=== PATIENT | female | born 1960 | race Caucasian/White ===

== ENCOUNTER 2019-08-31 12:15 | Observation (INO) | payer OTHER, SELFPAY ==
[2019-08-31] VITALS (7 sets, daily range): BP systolic 131–163; BP diastolic 67–105; PULSE 62–90; RESP 16–18; TEMP 36.1–36.8; O2SAT 93–98; BMI 37.7
--- NOTE | 2019-08-31 12:28 | NURSING ---
NO OLD EKGS
--- NOTE | 2019-08-31 12:34 | EKG12_ITS ---
Test Reason : CP Blood Pressure : / mmHG Vent. Rate : 079 BPM Atrial Rate : 079 BPM P-R Int : 144 ms QRS Dur : 080 ms QT Int : 378 ms P-R-T Axes : 014 025 007 degrees QTc Int : 433 ms Normal sinus rhythm Normal ECG Confirmed by DAYAN SHARMA, MILY ([id number]), city editor MARTHA JENNINGS ([id number]) on 09/02/2019 11:03:11 AM Referred By: MARSHA Confirmed By:MILY HANLEY MD
--- NOTE | 2019-08-31 12:43 | RAD_ITS ---
STUDY: X-RAY CHEST REASON FOR EXAM: Female, 59 years old. Chest pain. TECHNIQUE: Single AP portable view of the chest. COMPARISON: None. FINDINGS: EKG electrodes are seen. The lungs are clear and expanded. There is no demonstrated pleural abnormality. There is mild cardiac enlargement. Normal mediastinum and dharmesh. Normal visualized pulmonary arteries. Normal visualized aortic arch and descending thoracic aorta. There are degenerative changes of the visualized thoracic spine. Normal visualized ribs, clavicles, and shoulders. There is no demonstrated abnormality of the visualized soft tissue structures of the upper abdomen. RAD/Chest 1 View (Portable) IMPRESSION: Mild cardiomegaly. The lungs are clear. Electronically Signed: Boo Treadwell, at 12:56 EST , Service support ,
[2019-08-31 12:50] LABS: Absolute Neutrophil Count 4.7 X10^3/uL (2.0-7.7); Basophil# 0.06 X10^3/uL; Basophil% 0.7 % (0-1); Eosinophil# 0.13 X10^3/uL; Eosinophils% 1.6 % (0-5); Hematocrit 41.5 % (37-47); Lymphocyte % 33.8 % (19-41); Mean Corp Hgb Conc 33.7 g/dL (32-36); Mean Corpuscular Hgb 31.3 pg (27.0-32.0); Mean Corpuscular Volume 92.8 fL (81-99); Mean Platelet Vol. 9.4 fl (6.2-12.0); Monocyte# 0.58 X10^3/uL; NRBC Flagged by Analyzer 0 % (0-5); Neutrophil # 4.69 X10^3/uL (2.7-7.7); Neutrophil % 56.5 % (47-70); Platelet Count 446 K/mm3 (150-450); RBC Distribution Width CV 11.9 % (11.6-14.6); RBC Distribution Width SD 41.1 fl (35.1-43.9); Red Blood Count 4.47 M/mm3 (4.2-5.4); White Blood Count 8.3 K/mm3 (4.4-11.0)
--- NOTE | 2019-08-31 12:57 | ED.DCSUM_ITS ---
History of Present Illness Chief Complaint: Chest Pain Informant: Patient Onset: Today Context: Sudden Onset Timing: Continuous Current Severity: Moderate Maximum Severity: Moderate Narrative: The patient is a 59-year-old female with history of hypertension who presents to the emergency department with sudden onset chest pain. Patient was in her normal state of health. States she was at work. She states she suddenly had a substernal chest heaviness and felt short of breath. It was nonradiating. She did have mild nausea. She states the dyspnea has improved, but she still has the tightness in her chest. She states she is never had pain like this before. She exercises and has not had any exertional chest pain. She denies any fevers or chills. She does have a strong family history of heart disease. Prior similar symptoms: No Recent Illness/Hospitalization: No Past Medical History - Allergies and Home Meds Allergies/Adverse Reactions: Allergies bee venom protein (honey bee) Allergy (Verified 08/31/19 14:43) Anaphylaxis lisinopril Allergy (Verified 08/31/19 14:43) cough aspirin Adverse Reaction (Verified 08/31/19 12:16) Upset Stomach capsaicin [From Zostrix] Adverse Reaction (Verified 08/31/19 15:03) fever, joint pain Prior records reviewed: Yes Past Medical History: - - Hypertension Smoking Status: Current every day smoker - Family History Sibling Family History: Reports: Heart Disease - Sister who had Takatsubo cardiomyopathy Review of Systems General: Denies: Chills, Fever, Sweats Eyes: Denies: Visual changes - bilaterally, Diplopia ENT: Denies: Rhinorrhea, Sore throat Cardiovascular: Reports: Chest pain. Denies: Palpitations Respiratory: Reports: Dyspnea. Denies: Cough, Dyspnea on exertion Gastrointestinal: Denies: Abdominal pain, Nausea, Vomiting, Diarrhea, Melena, Hematochezia Genitourinary: Denies: Dysuria, Hematuria, Frequency Musculoskeletal: Denies: Back pain, Extremity Pain Skin: Denies: Rash, Wounds Neurological: Denies: Headache, Weakness, Numbness Physical Exam Vital Signs/Narrative: Vital Signs Temp Pulse Resp BP Pulse Ox 08/31/19 12:16 96.9 F L 90 17 163/105 H 95 Inital Vital Signs reviewed: Yes General: Well nourished, Well developed, No Acute Distress Head: Normocephalic, Atraumatic Eyes: Perrl, EOMI ENT: Moist mucous membranes, No rhinorrhea Neck: Supple, Nontender Cardiovascular: Regular rate, Regular rhythm, No murmurs Respiratory: No distress, CTA bilaterally, Chest nontender Abdomen: Soft, Nontender, Nondistended, Normal bowel sounds Back: Nontender, Normal Inspection Extremities: Nontender, No edema Skin: Normal color, No rash Neurological: Alert, Oriented x3, Cranial nerves II-XII grossly intact, Normal Strength, Normal Sensation Psychological: Normal affect, Normal Mood Diagnostic/Tx/Re-eval Clinical Impression(s) from Imaging Studies Chest X-Ray 08/31/19 12:43 IMPRESSION: Mild cardiomegaly. The lungs are clear. Electronically Signed: Boo Eben, at 12:56 EST , Service support , Abnormal Lab Results 08/31/19 08/31/19 12:24 12:24 WBC 8.3 RBC 4.47 Hgb 14.0 Hct 41.5 MCV 92.8 MCH 31.3 MCHC 33.7 RDW Std Deviation 41.1 RDW Coeff of Vannesa 11.9 Plt Count 446 MPV 9.4 Immature Gran % (Auto) 0.400 Neut % (Auto) 56.5 Lymph % (Auto) 33.8 Mccormick % (Auto) 7.0 Eos % (Auto) 1.6 Baso % (Auto) 0.7 Absolute Neuts (auto) 4.7 Absolute Lymphs (auto) 2.80 Nucleated RBC % 0 Sodium 139 Potassium 3.6 Chloride 103 Carbon Dioxide 30.0 Anion Gap 6 BUN 9 Creatinine 0.73 Estim Creat Clear Calc 10.83 Est GFR (MDRD) Af Amer 106 Est GFR (MDRD) Non-Af 88 BUN/Creatinine Ratio 12.4 Glucose 94 Calcium 9.6 Troponin I < 0.015 - Rhythm Strip Rhythm Strip: Sinus Rhythm Rate: 80 Ectopy: None - EKG Initial EKG Interpretation: Sinus Rhythm, No Acute Injury Pattern Prior: No Prior - Medical Decision Making The patient presents to the emergency department with sudden onset chest pain and dyspnea. EKG was obtained. There is no evidence of acute ischemia. Cardi ac enzymes are normal. The patient's pain was totally relieved with just aspirin. On reevaluation, she is continued to rest comfortably. Chest x-ray shows mild cardiomegaly which appears to be new. Based on the patient's risks I do feel that she would benefit from stress testing and observation. The patient was discussed with the hospitalist who agrees with plan of care. Impression 1. Chest pain ED Disposition - Plan for ED Patient: Disposition: Acute Care Hospital [facility]
[2019-08-31] MEDS: Aspirin 81 MG TAB.CHEW 324 MG PO (12:58)
[2019-08-31] MEDS: 0.9% Normal Saline 1,000 ML 150 ML IV (12:58)
[2019-08-31] MEDS: Ondansetron 4 MG/2 ML Vial IV (13:01)
[2019-08-31 13:08] LABS: Anion Gap 6 (5-15); BUN 9 mg/dL (7-18); BUN/Creat Ratio 12.4 RATIO (10-20); Calcium,Total 9.6 mg/dL (8.5-10.1); Chloride 103 mmol/L (98-107); Creatinine, Serum 0.73 mg/dL (0.55-1.02); EST Glomerular Filtration Rate 88 mL/min (>60); Est Glom Filt Rate - Afr Amer 106 mL/min (>60); Estimated Creatinine Clearance 10.83 ml/min; Glucose 94 mg/dL (74-106); Potassium 3.6 mmol/L (3.5-5.1); Sodium Level 139 mmol/L (136-145)
--- NOTE | 2019-08-31 13:46 | NURSING ---
102 OBS CP JOE
--- NOTE | 2019-08-31 14:48 | CON.PCM_ITS ---
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 The chest pain was midsternal sensation was like a gob of pills being stuck in her esophagus. Patient was diaphoretic as well as nauseated. Symptoms lasted 2 hours but resolved spontaneously. Patient denies any ever having had a history of chest pain like this before. Patient is very active at baseline and does a lot of walking up to several miles per day as well as spin class. Never experiences chest pain like that. She does have history of anxiety but is never had a history of panic attack that presented like this before. She presented to the emergency room and her work-up was unremarkable. The hospital service was asked to evaluate the patient for admission. Patient was on the fence whether not to do this inpatient versus outpatient. I informed patient that if she stated that we can get this done tomorrow but as outpatient would likely not occur for possible couple weeks. She had apparently decided to get this done as outpatient. [] Past Medical History Medical History: Medical History (Last Updated 08/31/19 @ 14:50 by Huber Saenz DO) Anxiety F41.9 HTN (hypertension) I10 Allergies bee venom protein (honey bee) Allergy (Verified 08/31/19 14:43) Anaphylaxis lisinopril Allergy (Verified 08/31/19 14:43) cough aspirin Adverse Reaction (Verified 08/31/19 12:16) Upset Stomach Home Medications: Ambulatory Orders Medication Instructions Recorded Albuterol IH (ProAir) [Proair Hfa] 2 puff INHALATION Q6H PRN PRN 08/31/19 Ascorbic Acid 500 mg PO DAILY 08/31/19 Cholecalciferol (VIT D3) [Vitamin 2,000 unit PO DAILY 08/31/19 D] Duloxetine HCl 30 mg PO DAILY 08/31/19 Epinephrine 0.3 mg IM UD 08/31/19 Gabapentin [Neurontin] 900 mg PO QHS 08/31/19 Hydrochlorothiazide [Hctz] 25 mg PO DAILY 08/31/19 Losartan Potassium 100 mg PO DAILY 08/31/19 Multivit-Min/Iron/Folic/Lutein 1 tab PO DAILY 08/31/19 [Centrum Silver Women Tablet] Pravastatin Sodium 10 mg PO DAILY 08/31/19 Vitamin B Complex 1 cap PO DAILY 08/31/19 Lives: With Family Smoking Status: Current every day smoker Tobacco Use: Non-smoker Alcohol: Rare Drugs: None - *Family History Sibling History Items: Heart Disease - Sister who had Takatsubo cardiomyopathy Review of Systems Constitutional: Denies: Anorexia, Chills, Fever, Malaise, Weakness Eyes: Denies: Blurred vision, Double vision HEENT: Denies: Head Aches, Sinus Congestion, Sinus Drainage Cardiovascular: Reports: Chest Pain. Denies: Edema Respiratory: Denies: Cough, Shortness of breath at rest, Sputum production Gastrointestinal: Reports: Nausea. Denies: Abdominal Pain, Vomiting Genitourinary: Denies: Dysuria Musculoskeletal: Denies: Joint Pain, Joint Tenderness Neurological: Reports: - Psychiatric: Reports: Anxiety - Patient had some paresthesias in her feet that felt like they are swollen. Denies: Depression Hematologic/ Lymphatic: Denies: Easy Bruising, Easy Bleeding, Hx of blood clot Comment: All review systems were negative except for as mentioned above and in the HPI. Patient Problems: Active and Suspected Problems (Last Updated 08/31/19 @ 14:50 by Huber Saenz DO) Chest pain (Acute) - Physical Exam Vitals/I&O's: Vital Signs Temp Pulse Resp BP Pulse Ox 36.8 C 62 16 138/73 H 98 08/31/19 14:35 08/31/19 14:35 08/31/19 14:35 08/31/19 14:35 08/31/19 14:35 Oxygen Flow Rate (L/min) 2 Oxygen Delivery Method Room Air Weight: 90.492 kg Body Mass Index (BMI) 37.7 General: Alert, Cooperative, No apparent distress, - - Tearful when I first walked in HEENT: Atraumatic, Normocephalic Oral: Moist Mucosa, No Gingival or Mucosal Lesions/ Ulcerations Neck: No Nodes, Thyroid Normal Size and Texture Lungs: Clear to auscultation, Normal air movement, No rhonchi, No wheeze, No rales Cardiovascular: Regular rate, Regular Rhythm, Normal S1, Normal S2, No murmurs Abdomen: Bowel Sounds Present, Soft, Non Tender, Non-Distended, No Hepato- splenomegaly Extremities: No edema, No Calf Tenderness Skin: No rashes, No breakdown Musculoskeletal: No Tenderness to Palpation of Joints or Extremities, No Muscle Wasting Psych/Mental Status: Appropriate, Anxious Laboratory Results 08/31/19 12:24: WBC 8.3, RBC 4.47, Hgb 14.0, Hct 41.5, MCV 92.8, MCH 31.3, MCHC 33.7, RDW Std Deviation 41.1, RDW Coeff of Vannesa 11.9, Plt Count 446, MPV 9.4, Immature Gran % (Auto) 0.400, Neut % (Auto) 56.5, Lymph % (Auto) 33.8, Wirt % (Auto) 7.0, Eos % (Auto) 1.6, Baso % (Auto) 0.7, Absolute Neuts (auto) 4.7, Absolute Lymphs (auto) 2.80, Nucleated RBC % 0 08/31/19 12:24: Sodium 139, Potassium 3.6, Chloride 103, Carbon Dioxide 30.0, Anion Gap 6, BUN 9, Creatinine 0.73, Estim Creat Clear Calc 10.83, Est GFR (MDRD) Af Amer 106, Est GFR (MDRD) Non-Af 88, BUN/Creatinine Ratio 12.4, Glucose 94, Calcium 9.6, Troponin I < 0.015 EKG reviewed and showed normal sinus rhythm with possible incomplete right bundle branch block Chest x-ray is negative for any infiltrate nor pulmonary edema. Current Medications Sodium Chloride () 1,000 mls @ 150 mls/hr IV .Q6H40M [facility] Last Admin: 08/31/19 12:58 Dose: 150 mls/hr Documented by: Nitroglycerin (Nitrostat) 0.4 mg SUBLINGUAL Q5M PRN PRN Reason: Chest pain Sodium Chloride () 10 - 40 ml IV UD PRN PRN Reason: SALINE FLUSH Assessment/Plan All Active Problems (Last Updated 08/31/19 @ 14:50 by Huber Saenz DO) Chest pain (Acute) 1. Chest pain * Heart Score of 2, JUS of 1 * Informed patient that this is more likely panic attack but would need to rule out cardiac etiology of her symptoms * Told patient that she could get this done as inpatient versus outpatient. She apparently later decided to be discharged and have this done as outpatient. * I did advise the patient that if she were to do this as outpatient that she should refrain from doing her exertional activities in the interim until her heart has been deemed fit. * Was mention of cardiomegaly on chest x-ray. Not a good representation of assessing the enlarged heart on chest x-ray but they can be further followed up with a stress test. Code Visit Office Visits / Consults: [id number] OP Consult L4
--- NOTE | 2019-08-31 14:55 | EKG12_ITS ---
Test Reason : Blood Pressure : / mmHG Vent. Rate : 068 BPM Atrial Rate : 068 BPM P-R Int : 154 ms QRS Dur : 076 ms QT Int : 410 ms P-R-T Axes : 009 022 013 degrees QTc Int : 435 ms Normal sinus rhythm Low voltage QRS Borderline ECG Confirmed by DAYAN SHARMA, MILY ([id number]), scientific editor MARTHA JENNINGS ([id number]) on 09/02/2019 11:17:39 AM Referred By: JOE Confirmed By:MILY HANLEY MD
[2019-08-31] MEDS: Gabapentin 300 MG Capsule 900 MG PO (22:08)
[2019-08-31] MEDS: Pravastatin 20 MG Tablet 10 MG PO (22:08)
[2019-09-01 02:20] VITALS: BP 101/58; PULSE 71; RESP 16; TEMP 36.7; O2SAT 94
[2019-09-01 03:01] VITALS: PULSE 72
--- NOTE | 2019-09-01 05:55 | STEWCON_ITS ---
Reason For Study: CHEST PAIN Stress Results Protocol: Juan M Protocol WITH DEFINITY Maximum Predicted HR: 162 bpm Target HR: 138 bpm % Maximum Predicted HR: 100 % DurationHeart Rate Stage (mm:ss) (bpm) BP Comment BASELINE 67 110/702 CC DEFINITY STAGE 1 3:00 116 144/70 STAGE 2 3:00 134 170/80 STAGE 3 3:00 153 174/82SOB NO CHEST PAIN STAGE 4 0:31 162 / 2 CC DEFINITY RECOVERY 96 112/84 Stress Duration: 9:31 mm:ss Maximum Stress HR: 162 bpm METS: 11 Baseline Echocardiogram Findings Stress Echo Wall motion Data Resting WM Intermediate WM Stress WM Resting Wall Motion Wall Motion Stress All segments Normal. All segments Hyperkinetic. Ejection Fraction 60 %. Ejection Fraction 75 %. Stress Results Heart rate response: appropriate Blood pressure response: normal resting BP - appropriate response Arrhythmias: none Functional capacity: good Stopped secondary to: dyspnea. EKG Data Baseline ECG: NSR. Peak exercise ECG: no obvious ECG changes. Symptoms with Stress No c/o chest discomfort during exercise / recovery. Interpretation Summary Negative (adequate) Stress Echocardiogram Ordering Physician: Huber Saenz Performed By: Audra Alvarez, SAMIA, RVT
--- NOTE | 2019-09-01 05:55 | EKG12_ITS ---
Test Reason : AM EKG Blood Pressure : / mmHG Vent. Rate : 078 BPM Atrial Rate : 078 BPM P-R Int : 154 ms QRS Dur : 076 ms QT Int : 394 ms P-R-T Axes : 030 044 029 degrees QTc Int : 449 ms Normal sinus rhythm Low voltage QRS Borderline ECG When compared with ECG of 31-AUG-2019 13:43, MANUAL COMPARISON REQUIRED, DATA IS UNCONFIRMED Confirmed by FATEMEH SHARMA, VENITA ([id number]), sound editor SHANIQUE SMITH ([id number]) on 09/08/2019 3:12:57 PM Referred By: JOE Confirmed By:VENITA WELDON MD
[2019-09-01 06:24] VITALS: BP 108/59; PULSE 71; RESP 18; TEMP 36.7; O2SAT 95
[2019-09-01] MEDS: Aspirin E.C. 81 MG Tablet PO (06:30)
[2019-09-01] MEDS: Acetaminophen 325 MG Tablet 650 MG PO (06:30)
[2019-09-01] MEDS: Losartan Potassium 100 MG Tablet PO (06:35)
[2019-09-01 07:00] VITALS: PULSE 75
[2019-09-01] MEDS: Multivitamins,Ther W-Minerals Tablet 1 TABLET PO (09:06)
[2019-09-01] MEDS: Loratadine 10 MG Tablet PO (09:07)
[2019-09-01] MEDS: DULoxetine Hcl 30 MG Capsule PO (09:07)
[2019-09-01] MEDS: hydroCHLOROthiazide 25 MG Tablet PO (09:07)
[2019-09-01] MEDS: Vitamin B Comp W-C Capsule 1 CAP PO (09:07)
[2019-09-01] MEDS: Ascorbic Acid 500 MG Tablet PO (09:08)
[2019-09-01 09:15] VITALS: BP 109/62; PULSE 70; RESP 12; TEMP 36.9; O2SAT 96
--- NOTE | 2019-09-01 13:52 | PCM.WORK.EX ---
Work/School Excuse Please excuse this person from:: Work From: 08/31/19 through: 09/06/19 Restrictions: Other - she has stress induced HTN and should do the Podium no more than 1 time a week
--- NOTE | 2019-09-01 13:53 | DCINST_ITS ---
- Discharge Diagnoses Current Active Problems: Current Active and Chronic Problems (Last Updated 08/31/19 @ 14:50 by Huber Saenz DO) Chest pain (Acute) You will use the following diet at home:: No restrictions - I do recommend you try and lose some weight....it will help with BP control. Try a 1600 calorie diet and continue to exercise. Your food should be the consistency of: Regular Your liquids should be the consistency of: Regular/Thin Discharge Activity: Return to Normal Activity, - - Do not lift more than 10-15 lbs. Return to work on:: 09/07/19 May resume sexual activity in: No Restrictions Lifting Restrictions: no more than 10-15 lbs Call your doctor if you observe: Fever of 101 or Higher, Shortness of breath, Dizziness, Fainting spells, Swelling in the ankles, Chest pain, Calf discomfort Instructions: Your Body's Response to Anxiety, Treating Anxiety Disorders with Therapy, MyPlate Worksheet: 1,400 Calories, MyPlate Worksheet: 1,600 Calories Additional Instructions: The phone number for the [facility] is [phone]. Tashia Anderson is very good and so is Amparo olivera. You may want to consider talking to Dr. Craig about increasing the Cymbalta dose. Cymbalta sometimes is associated with increase in the BP and some prople get more anxious when on Duloxetine and Venfaxiline. If this happens to you I would consider changing the medication to a pure SSRI rather than a SNRI. I am discontinuing the Losartan and starting you on a beta lm to better control the heart rate when you are anxious. It blocks the effects of adrenaline on the heart. You should see Dr. Craig the end of the week to have the BP checked and check in with him. It was a pleasure to meet you. TAke care of yourself.....you have been working for a long time and stress will kill you if it gets bad enough. Stay away from caffeine, choclate and peppermints......they increase reflux. Do not take TUMS because they contain calcium and it will increase acid secretion from the stomach. Use Mylanta or Maalox or Gaviscon instead or drink a glass of cold water. Allergies/Adverse Reactions: Allergies bee venom protein (honey bee) Allergy (Verified 08/31/19 14:43) Anaphylaxis aspirin Adverse Reaction (Verified 08/31/19 12:16) Upset Stomach capsaicin [From Zostrix] Adverse Reaction (Verified 08/31/19 15:03) fever, joint pain lisinopril Adverse Reaction (Verified 08/31/19 17:16) cough Medications to take at Discharge Albuterol IH (ProAir) [Proair Hfa] 2 puff INHALATION Q6H PRN PRN 08/31/19 Ascorbic Acid 500 mg PO DAILY 08/31/19 Cetirizine HCl [Zyrtec] 10 mg PO DAILY 08/31/19 Cholecalciferol (VIT D3) [Vitamin D3] 2,000 unit PO DAILY 08/31/19 Duloxetine HCl 30 mg PO QHS 08/31/19 Epinephrine 0.3 mg IM UD 08/31/19 Gabapentin [Neurontin] 900 mg PO QHS 08/31/19 Hydrochlorothiazide [Hctz] 25 mg PO DAILY 08/31/19 Multivit-Min/Iron/Folic/Lutein [Centrum Silver Women Tablet] 1 tab PO DAILY 08/31/19 Pravastatin Sodium 10 mg PO DAILY 08/31/19 Vitamin B Complex 1 cap PO DAILY 08/31/19 Metoprolol(XL)Succ [Toprol Xl (Beta Lm)] 25 mg PO DAILY #30 tab 09/01/19 The following prescriptions were given: Metoprolol(XL)Succ [Toprol Xl (Beta Lm)] 25 mg PO DAILY #30 tab Transmission Status: Pending to [facility] Primary Care Physician: Higinio Craig MD [Primary Care Provider] - Please follow up with your Primary Care Physician in: end of this week Test Results: Test results from this visit will be discussed in further detail at your follow- up appointment, if applicable. Please Follow Up With: [facility] When: LEXY Proposed Discharge Date: 09/01/19
--- NOTE | 2019-09-01 14:07 | DS.PCM_ITS ---
Discharge Date and Diagnosis Date of Admission: 08/31/19 Date of Discharge: 09/01/19 - Primary Discharge Diagnosis Active and Suspected Problems (Last Updated 08/31/19 @ 14:50 by Huber Saenz DO) Hypertensive urgency (Acute) Chest pain (Acute) - non-cardiac. Suspect due to panic attack - Secondary Discharge Diagnosis Chronic Problems (Last Updated 08/31/19 @ 14:50 by Huber Saenz DO) Obesity (BMI 30-39.9) (Chronic) HTN Generalized anxiety with panic attacks Hospital Course and Treatment Imaging Results: 09/01/19 05:55 Stress Test Echo W/Contrast [ECHO] AM (NON MEDS) Clinical Impression(s) from Imaging Studies Chest X-Ray 08/31/19 12:43 IMPRESSION: Mild cardiomegaly. The lungs are clear. Electronically Signed: Boo Treadwell, at 12:56 EST , Service support , none Operations: None Procedures: Stress test - Interpretation Summary Negative (adequate) Stress Echocardiogram Ejection fraction at rest on echocardiogram is 60% and with exercise the ejection fraction increased to 75%. Summary of Care Provided: The patient is a 59 year old F with a past medical history of GERD, hypertension, hyperlipidemia, anxiety/depression, COPD and obesity who presented to the ED at [facility] on 08/31/2019 complaining of chest pain. The chest pain was associated with diaphoresis and nausea and sometimes lasted a few hours. Chest pain was not associated with exertion and in fact she works out at the gym and does a spin class with no chest pain. She did relate that her anxiety level had been very high recently and she sometimes feels as though she is going to and she can not get a deep breath and her heart races and her lips tingle. Troponin was less than 0.015 and the CBC and BMP were unremarkable. Chest x-ray showed No infiltrates, pulmonary vascular congestion or pleural effusions. She was admitted to a monitored bed on PCU and the chest pain protocol was initiated. Serial cardiac enzymes were negative. Stress echocardiogram on the date of discharge was negative. The ejection fraction at rest was 60% and appropriately increased to 75% with exertion. She had a normal resting blood pressure and the blood pressure increased appropriately with exercise. She achieved 100% of her age-predicted maximum heart rate. She was discharged home and was given the phone number to contact [facility] for counseling to learn to control her anxiety/panic attacks. She is currently on a SNRI and these can be associated with anxiety and are also associated with an increase in blood pressure. She will follow-up with Dr. Craig in the office later in the week. PHYSICAL EXAM: GENERAL: alert, oriented X 3, Cooperative, NAD ORAL: moist mucosa, no mucosal lesions NECK: No JVD, supple, trachea midline LUNGS: CTA, symmetric chest expansion HEART: RRR, Normal S1 and S2, no rub, no gallop ABDOMEN: soft, NT, ND, BS present, no guarding with palpation EXTREMITIES: no edema, no cyanosis, no calf tenderness SKIN: No rashes, no breakdown NEUROLOGIC: no focal neurologic deficits PSYCH: appropriate, normal affect, pleasant This note was generated with [employer] dictation software. It may contain incorrect words, spelling, and punctuation that were not noted in checking the note before signing. - Physical Exam Vitals/I&O's: Vital Signs Temp Pulse Resp BP Pulse Ox 98.4 F 70 12 109/62 96 09/01/19 09:15 09/01/19 09:15 09/01/19 09:15 09/01/19 09:15 09/01/19 09:15 Oxygen Flow Rate (L/min) 2 Oxygen Delivery Method Room Air Weight: 199 lb 8 oz Body Mass Index (BMI) 37.7 Intake and Output for Last 24 Hours 08/30/19 08/31/19 09/01/19 23:59 23:59 23:59 Intake Total 1405 / 1405 1120 / 1120 Balance 1405 / 1405 1120 / 1120 Laboratory Results 08/31/19 16:50: Troponin I < 0.015 08/31/19 19:34: Troponin I < 0.015 Current Medications Acetaminophen (Tylenol) 650 mg PO Q6H PRN PRN PRN Reason: Pain Score 1-3/Temp > 100.7 F Last Admin: 09/01/19 06:30 Dose: 650 mg Documented by: Albuterol Sulfate (Ventolin Aerosols) 2.5 mg INHALATION Q4H PRN PRN Reason: SOB &/OR WHEEZING Ascorbic Acid (Vitamin C) 500 mg PO DAILY RITO Last Admin: 09/01/19 09:08 Dose: 500 mg Documented by: Aspirin (Ecotrin) 81 mg PO DAILY@0800 [facility] Last Admin: 09/01/19 06:30 Dose: 81 mg Documented by: Cholecalciferol (Vitamin D) 2,000 unit PO DAILY [facility] Last Admin: 09/01/19 09:07 Dose: 2,000 unit Documented by: Dextrose (D50w Syringe) 0 gm IV X1 PRN; Protocol PRN Reason: Hypoglycemia Duloxetine HCl (Cymbalta) 30 mg PO DAILY [facility] Last Admin: 09/01/19 09:07 Dose: 30 mg Documented by: Epinephrine HCl () 0.3 mg IM UD PRN Gabapentin (Neurontin) 900 mg PO QHS [facility] Last Admin: 08/31/19 22:08 Dose: 900 mg Documented by: Glucagon () 1 mg IM .X1 PRN PRN Reason: Hypoglycemia Hydrochlorothiazide (Hctz) 25 mg PO DAILY [facility] Last Admin: 09/01/19 09:07 Dose: 25 mg Documented by: Loratadine (Claritin) 10 mg PO DAILY [facility] Last Admin: 09/01/19 09:07 Dose: 10 mg Documented by: Losartan Potassium (Cozaar) 100 mg PO DAILY [facility] Last Admin: 09/01/19 06:35 Dose: 100 mg Documented by: Melatonin (Melatonin) 3 mg PO QHS PRN PRN PRN Reason: INSOMNIA Multivitamins (Allbee W/C Caplet, Thera B Comp/C) 1 capsule PO DAILY [facility] Last Admin: 09/01/19 09:07 Dose: 1 capsule Documented by: Multivitamins/Minerals (Multivitamin With Minerals) 1 tablet PO DAILY@0800 [facility] Last Admin: 09/01/19 09:06 Dose: 1 tablet Documented by: Nitroglycerin (Nitrostat) 0.4 mg SUBLINGUAL Q5M PRN PRN Reason: CARDIAC/CHEST PAIN Ondansetron HCl (Zofran) 4 mg IV Q8H PRN PRN PRN Reason: NAUSEA/VOMITING Pravastatin Sodium (Pravachol) 10 mg PO QHS [facility] Last Admin: 08/31/19 22:08 Dose: 10 mg Documented by: Senna/Docusate Sodium (Senokot-S, Gissell-Colace) 2 tablet PO BID PRN PRN PRN Reason: Constipation Discharge Activity: Return to Normal Activity, - - Do not lift more than 10-15 lbs. Return to work on:: 09/07/19 May resume sexual activity in: No Restrictions Call your doctor if you observe: Fever of 101 or Higher, Shortness of breath, Dizziness, Fainting spells, Swelling in the ankles, Chest pain, Calf discomfort Home Medications: Medications to take at Discharge Albuterol IH (ProAir) [Proair Hfa] 2 puff INHALATION Q6H PRN PRN 08/31/19 Ascorbic Acid 500 mg PO DAILY 08/31/19 Cetirizine HCl [Zyrtec] 10 mg PO DAILY 08/31/19 Cholecalciferol (VIT D3) [Vitamin D3] 2,000 unit PO DAILY 08/31/19 Duloxetine HCl 30 mg PO QHS 08/31/19 Epinephrine 0.3 mg IM UD 08/31/19 Gabapentin [Neurontin] 900 mg PO QHS 08/31/19 Hydrochlorothiazide [Hctz] 25 mg PO DAILY 08/31/19 Multivit-Min/Iron/Folic/Lutein [Centrum Silver Women Tablet] 1 tab PO DAILY 08/31/19 Pravastatin Sodium 10 mg PO DAILY 08/31/19 Vitamin B Complex 1 cap PO DAILY 08/31/19 Metoprolol(XL)Succ [Toprol Xl (Beta Lm)] 25 mg PO DAILY #30 tab 09/01/19 Following Prescrptions Were Given to Patient: Metoprolol(XL)Succ [Toprol Xl (Beta Lm)] 25 mg PO DAILY #30 tab Transmission Status: Received by TACHO MYLES-[id number] [facility] Primary Care Physician: Higinio Craig MD [Primary Care Provider] - Please follow up with your Primary Care Physician in: end of this week Please Follow Up With: [facility] When: LEXY Patient Instructions: Your Body's Response to Anxiety, Treating Anxiety Disorders with Therapy, MyPlate Worksheet: 1,400 Calories, MyPlate Worksheet: 1,600 Calories Minutes spent on discharge:: 30 Patient Condition:: Good Medical Necessity - Tobacco Use Smoking Status: Never smoker Tobacco Use: Non-smoker Meaningful Use Info Meaningful Use Diagnoses (Choose all that apply): None applicable Code Visit OBSV E&M: 54660 Observation care discharge
[2019-09-01 14:20] VITALS: BP 151/70; PULSE 75; RESP 16; TEMP 36.8; O2SAT 97
== END 2019-09-01 14:06 | disposition home or self-care (01) ==
LOC: ED 13:07 → PCU 09-01 06:22
PROVIDERS: Emergency Provider Emergency Medicine; Family Provider Family Medicine; PCP Family Medicine; Visit Provider Internal Medicine
DX: I16.0 Hypertensive urgency (principal); I10 Essential (primary) hypertension; R07.89 Other chest pain; Z79.899 Other long term (current) drug therapy; E66.9 Obesity, unspecified; Z68.37 Body mass index [BMI] 37.0-37.9, adult; Z71.3 Dietary counseling and surveillance; F41.1 Generalized anxiety disorder
CPT/HCPCS: 71045; 80048; 84484; 85025; 93005; 93017; 93350; 96374; 99218; 99285; J7030; Q9957; A4216; C8928; G0378; J2405

== ENCOUNTER 2023-02-17 10:07 | Emergency (ER) | payer OTHER, SELFPAY ==
[2023-02-17 10:08] VITALS: BP 175/101; PULSE 74; RESP 18; TEMP 35.5; O2SAT 96; BMI 40.2
--- NOTE | 2023-02-17 10:42 | EKG12_ITS ---
Test Reason : Blood Pressure : / mmHG Vent. Rate : 076 BPM Atrial Rate : 076 BPM P-R Int : 150 ms QRS Dur : 078 ms QT Int : 382 ms P-R-T Axes : 018 019 023 degrees QTc Int : 429 ms Normal sinus rhythm Normal ECG Confirmed by FATEMEH SHARMA, VENITA ([id number]), city editor MARTHA JENNINGS ([id number]) on 02/18/2023 11:37:55 AM Referred By: ONELIA Confirmed By:VENITA WELDON MD
--- NOTE | 2023-02-17 10:42 | CT_ITS ---
EXAM: CT HEAD WITHOUT INTRAVENOUS CONTRAST CLINICAL INDICATION: HTN, headache TECHNIQUE: Multiple axial images were obtained of the head without intravenous contrast. This CT exam was performed using one or more of the following dose reduction techniques: automated exposure control, adjustment of the mA and/or kV according to patient size, and/or use of iterative reconstruction technique. This report was created using [employer] report generation technology. COMPARISON: None. FINDINGS: BRAIN AND EXTRA-AXIAL SPACES: Normal. No intra- or extra-axial hemorrhage. No acute infarct. No intracranial mass or mass effect. There is preservation of the bañuelos/white matter interface. Posterior fossa structures are unremarkable. Ventricles are appropriate for age. No hydrocephalus. Basal cisterns are patent. BONES/JOINTS: No suspicious lytic or blastic abnormality. SINUSES: No acute sinusitis. MASTOID AIR CELLS: Normal. Clear. ORBITS: Visualized globes, extraocular muscles, optic nerves and retrobulbar fat appear unremarkable. CT/Brain/Head without Contrast IMPRESSION: Normal CT brain without intravenous contrast. Electronically Signed: Mello Wood MD at 11:48 EDT ,
--- NOTE | 2023-02-17 10:43 | EDS_ITS ---
HPI History of Present Illness Chief Complaint: Hypertension Detail of Chief Complaint: headache Informant: patient Narrative Narrative: Patient presents secondary to headache and hypertension. She is a history of hypertension and was previously managed with metoprolol along with hydrochlorothiazide. There were problems with her potassium running low despite potassium replacement on the hydrochlorothiazide and she was switched to spir onolactone approximately 6 weeks ago. At a recent visit her spironolactone dose was increased. For the past 1 week she is been complaining of headache which she describes is mostly over the occiput. This morning when she got up for work her blood pressure read 200/190. She states has been getting readings in the 180s over 85 range. She went to work but had continued headache and her boss sent her to the hospital for evaluation. Patient does report some light sensitivity and nausea today. She denies chest pain or palpitations. [facility] Medical History Anxiety HTN (hypertension) Home Medications albuterol sulfate 90 mcg/actuation aerosol inhaler 2 puff inhalation Q6H PRN PRN Sob &/Or Wheezing 08/31/19 [History Last Taken Unknown] ascorbic acid (vitamin C) 500 mg tablet 500 mg PO DAILY 08/31/19 [History Last Taken 08/31/19] cetirizine 10 mg tablet 10 mg PO DAILY allergies 08/31/19 [History Last Taken 08/31/19] cholecalciferol (vitamin D3) 25 mcg (1,000 unit) tablet 2,000 unit PO DAILY 08/31/19 [History Last Taken 08/31/19] duloxetine 30 mg capsule,delayed release 30 mg PO QHS 08/31/19 [History Last Taken 08/30/19] epinephrine 0.3 mg/0.3 mL injection, auto-injector 0.3 mg IM UD 08/31/19 [Hist ory Last Taken Unknown] gabapentin 300 mg capsule 900 mg PO QHS 08/31/19 [History Last Taken 08/30/19] hydrochlorothiazide 25 mg tablet 25 mg PO DAILY 08/31/19 [History Last Taken 08/31/19] multivit with dlyekybv-ivpz-OZ-lutein 8 mg iron-400 mcg-300 mcg tablet 1 tab PO DAILY 08/31/19 [History Last Taken 08/31/19] pravastatin 10 mg tablet 10 mg PO DAILY 08/31/19 [History Last Taken 08/31/19] vitamin B complex 1 cap PO DAILY 08/31/19 [History Last Taken 08/31/19] metoprolol succinate 25 mg tablet,extended release 24 hr 25 mg PO DAILY #30 tabs 09/01/19 [Rx Last Taken Unknown] Allergy/AdvReac Type Severity Reaction Status Date / Time bee venom protein (honey bee) Allergy Anaphylaxis Verified 02/17/23 10:09 aspirin AdvReac Upset Verified 02/17/23 10:09 Stomach capsaicin [From Zostrix] AdvReac fever, Verified 02/17/23 10:09 joint pain lisinopril AdvReac cough Verified 02/17/23 10:09 Social History Smoking Status: Never smoker ROS ROS ED Constitutional Constitutional ED: Denies chills or fever(s) Eyes Eyes: Denies change in vision or discharge from eye(s) ENT ENT ED: Denies discharge from eye(s), rhinorrhea or sore throat Cardiovascular Cardiovascular: Denies chest pain or palpitations Respiratory/Chest Respiratory/Chest: Denies cough or dyspnea Gastrointestinal Gastrointestinal: Reports nausea and vomiting; Denies abdominal pain or diarrhea Genitourinary Genitourinary ED: Reports urinary frequency; Denies dysuria Musculoskeletal Musculoskeletal: Denies back pain or extremity pain Integumentary Denies Abrasions or rash Neurologic Neurologic: Reports headache(s); Denies weakness Allergic/Immunologic Allergic/Immunologic ED: Denies lip swelling or urticaria EXAM Physical Exam Narrative Exam Narrative: Patient sitting well at room in no acute distress. Nontoxic-appearing. Const Vital Signs: 02/17/23 10:08 02/17/23 10:24 02/17/23 12:21 Temperature 96 F L Temperature Source Temporal Pulse Rate 74 68 Respiratory Rate 18 16 Respiratory Effort Normal Non-Labored Respiratory Pattern Normal Blood Pressure 175/101 H 154/78 H Blood Pressure Mean 125 103 Pulse Ox 96 Oxygen Delivery Method Room Air Positive well nourished and well developed General Appearance ED: well developed HEENT Reports moist mucous membranes Eyes PERRL and EOMs intact bilaterally Neck no lymphadenopathy Chest Wall inspection of chest normal and palpation of chest normal Resp normal respiratory effort and clear to auscultation bilaterally Cardio regular rate and regular rhythm GI normal to inspection, nondistended, normoactive bowel sounds Extremity normal to inspection Neuro oriented x3 and no sensory deficits noted Motor Exam: strength 5/5 throughout Psych mental status grossly normal Skin no rashes or lesions noted MDM MDM MDM Narrative Medical decision making narrative: Patient placed on surveillance monitor. EKG obtained to evaluate for cardiac arrhythmia/ischemia. Labwork obtained to evaluate for leukocytosis, anemia, and electrolyte derangement. CT scan of the head obtained given her hypertension and headache. Patient given IV fluids along with a small dose of Toradol and Compazine. Lab Data Attestation: I reviewed the patient's lab results. Labs: Laboratory Results - last 24 hr 02/17/23 02/17/23 10:20 10:20 WBC 9.6 RBC 4.52 Hgb 14.2 Hct 43.3 MCV 95.8 MCH 31.4 MCHC 32.8 RDW Std Deviation 44.4 H RDW Coeff of Vannesa 12.4 Plt Count 398 MPV 9.5 Immature Gran % (Auto) 0.500 Neut % (Auto) 62.5 Lymph % (Auto) 26.0 Dewey % (Auto) 7.8 Eos % (Auto) 2.4 Baso % (Auto) 0.8 Absolute Neuts (auto) 6.0 Absolute Lymphs (auto) 2.49 Nucleated RBC % 0 Sodium 137 Potassium 4.5 Chloride 108 H Carbon Dioxide 25.0 Anion Gap 4 L BUN 10 Creatinine 0.76 Estim Creat Clear Calc 58.66 Est GFR (MDRD) Af Amer 100 Est GFR (MDRD) Non-Af 82 BUN/Creatinine Ratio 13.2 Glucose 108 H Calcium 9.9 Radiography Diagnostic Testing: Clinical Impression(s) from Imaging Studies Brain CT 02/17/23 10:42 IMPRESSION: Normal CT brain without intravenous contrast. Electronically Signed: Mello Wood MD at 11:48 EDT , EKG Initial EKG: Attestation: I personally reviewed and interpreted this EKG as follows: Interpretation: Sinus Rhythm (Sinus at 76 with no acute ischemia.) Treatment and Re-Evaluation :: CBC and chemistry studies are unremarkable. Potassium level is normal. EKG is sinus rhythm with no acute ischemia. No significant evidence of LVH. CT scan of the head is unremarkable. No significant signs of sinusitis. On repeat evaluation patient is resting comfortably. She states her headache is now down to a 1 out of 10. Blood pressure has settled in the 150/70 range. She will be discharged to home. I advised her that I am unsure if the headache is related to the increased dose of her spironolactone, as symptoms did seem to coincide with this increase. I recommended she hold her spironolactone and call her physician tomorrow morning. Discharge Plan Triage Chief Complaint: Hypertension ED Provider: Annie Tsai Dx/Rx/DC Orders Clinical Impression: Cephalgia, Hypertension Instructions: ED Hypertension, Established, ED, Migraine (Classical) Prescriptions: No Action pravastatin 10 MG tablet 10 mg PO DAILY ascorbic acid (vitamin C) 500 MG tablet 500 mg PO DAILY gabapentin 300 MG capsule 900 mg PO QHS hydrochlorothiazide 25 MG tablet 25 mg PO DAILY epinephrine 0.3MG/0 auto-injector 0.3 mg IM UD albuterol sulfate 90 MCG inhaler 2 puff inhalation Q6H PRN PRN (Reason: Sob &/Or Wheezing) vitamin B complex 1 EACH capsule 1 cap PO DAILY duloxetine 30 MG capsule,delayed release(DR/EC) 30 mg PO QHS cholecalciferol (vitamin D3) 1,000 UNIT tablet 2,000 unit PO DAILY orrmmgka-zyh-fbim-FA-lutein 1 EACH tablet 1 tab PO DAILY cetirizine 10 MG tablet 10 mg PO DAILY metoprolol succinate 25 MG tablet 25 mg PO DAILY Qty: 30 0RF Primary Care Provider: Higinio Craig Referrals: Higinio Craig MD [Primary Care Provider] - As soon as possible Disposition Disposition: Home, Self Care
[2023-02-17] MEDS: 0.9% Normal Saline 1,000 ML 1000 ML IV (10:50)
[2023-02-17 10:51] LABS: Absolute Lymphocyte Count 2.49 X10^3/uL (0.83-4.51); Basophil# 0.08 X10^3/uL; Basophil% 0.8 % (0-1); Eosinophil# 0.23 X10^3/uL; Eosinophils% 2.4 % (0-5); Hematocrit 43.3 % (37-47); Hemoglobin 14.2 g/dL (12.0-15.0); Lymphocyte # 2.49 X10^3/ul (0.83-4.51); Mean Corp Hgb Conc 32.8 g/dL (32-36); Mean Corpuscular Hgb 31.4 pg (27.0-32.0); Mean Corpuscular Volume 95.8 fL (81-99); Mean Platelet Vol. 9.5 fl (6.2-12.0); Monocyte# 0.75 X10^3/uL; Monocyte% 7.8 % (0-10); NRBC Flagged by Analyzer 0 % (0-5); Neutrophil # 5.96 X10^3/uL (2.7-7.7); Neutrophil % 62.5 % (47-70); Platelet Count 398 K/mm3 (150-450); RBC Distribution Width CV 12.4 % (11.6-14.6); RBC Distribution Width SD 44.4 fl (35.1-43.9); Red Blood Count 4.52 M/mm3 (4.2-5.4); White Blood Count 9.6 K/mm3 (4.4-11.0)
[2023-02-17] MEDS: proCHLORPERazine 10 MG/2 ML Vial 5 MG IV (10:51)
[2023-02-17] MEDS: Ketorolac 15 MG/ML Vial IV (10:53)
[2023-02-17 11:04] LABS: Anion Gap 4 (5-15); BUN 10 mg/dL (7-18); BUN/Creat Ratio 13.2 RATIO (10-20); Calcium,Total 9.9 mg/dL (8.5-10.1); Chloride 108 mmol/L (98-107); Creatinine, Serum 0.76 mg/dL (0.55-1.02); EST Glomerular Filtration Rate 82 mL/min (>60); Est Glom Filt Rate - Afr Amer 100 mL/min (>60); Estimated Creatinine Clearance 58.66 ml/min; Glucose 108 mg/dL (74-106); Potassium 4.5 mmol/L (3.5-5.1); Sodium Level 137 mmol/L (136-145)
[2023-02-17 12:21] VITALS: BP 154/78; PULSE 68; RESP 16
== END 2023-02-17 12:54 | disposition home or self-care (01) ==
PROVIDERS: Emergency Provider Emergency Medicine; PCP Family Medicine; Visit Provider Emergency Medicine
DX: R51.9 Headache, unspecified (principal); I10 Essential (primary) hypertension; Z79.899 Other long term (current) drug therapy; R35.0 Frequency of micturition
CPT/HCPCS: 70450; 80048; 85025; 93005; 96361; 96374; 96375; 99284; J7030; A4216